=== PATIENT | female | born 1950 | race Caucasian/White ===

== ENCOUNTER 2023-04-05 12:18 | Inpatient (IN) | payer MEDICARE, BC ==
[2023-04-05 14:26] VITALS: BMI 32.8
[2023-04-05] MEDS ORDERED: Communication Order-Pharmacy FS SCH (14:30)
[2023-04-05] MEDS ORDERED: Ondansetron PF 4 MG/2 ML Vial IVP PRN (14:48)
[2023-04-05] MEDS ORDERED: Acetaminophen 325 MG TAB PO PRN (14:48)
[2023-04-05] MEDS ORDERED: Nitroglycerin 0.4 MG TAB (25 Tab Bottle) SL PRN (14:50)
[2023-04-05 15:28] LABS: #Monocytes 0.2 thou/uL (0.11-0.59); #Neutrophils 3.5 thou/uL (1.40-6.50); %Basophils 0.7 % (0.0-1.0); %Eosinophils 0.7 % (0.0-10.0); %Lymphocytes 31.5 % (21.0-51.0); %Neutrophils 62.9 % (42.0-75.0); Hematocrit 40.6 % (36.0-47.0); Hemoglobin 13.4 g/dL (12.0-16.0); Mean Corpuscular Hemoglobin 31.3 pg (27.0-31.0); Mean Corpuscular Volume 94.9 fl (78.0-98.0); Mean Platelet Volume 11.2 fL (7.4-10.4); Platelet Count 258 10x3/uL (130-400); RBC Distribution Width 12.9 % (11.5-14.5); Red Blood Cell (RBC) Count 4.28 mill/uL (4.20-5.40); White Blood Cell (WBC) Count 5.5 10x3/uL (4.8-10.8)
[2023-04-05 15:41] LABS: INR-International Normal Ratio 0.9; Prothrombin Time 12.7 sec (12.0-14.7)
[2023-04-05 16:11] LABS: ALT (SGPT) 13 U/L (8-55); AST (SGOT) 25 U/L (5-34); Alkaline Phosphatase 57 U/L (40-110); Anion Gap 15 mmol/L (10-20); BUN (Urea Nitrogen) 14 mg/dL (9.8-20.1); Bilirubin, Total 0.3 mg/dL (0.2-1.2); Calc. Creatinine Clearance 80 mL/min (70-130); Calcium 8.9 mg/dL (7.8-10.44); Carbon Dioxide 22 mmol/L (23-31); Chloride 105 mmol/L (98-107); Estimated GFR 72; Globulin 2.6 g/dL (2.4-3.5); Glucose 84 mg/dL (83-110); Potassium 4.2 mmol/L (3.5-5.1); Protein, Total 6.6 g/dL (5.8-8.1); Sodium 138 mmol/L (136-145)
[2023-04-05] MEDS ORDERED: Aspirin 81 mg Enteric Coated Tablet PO SCH (16:15)
[2023-04-05] MEDS: Metoprolol Tartrate 25 MG TAB PO SCH (20:30)
[2023-04-05] MEDS ORDERED: Atorvastatin Calcium 40 MG TAB PO SCH (21:00)
[2023-04-06 04:58] LABS: Anion Gap 15 mmol/L (10-20); BUN (Urea Nitrogen) 13 mg/dL (9.8-20.1); Calc. Creatinine Clearance 84 mL/min (70-130); Carbon Dioxide 22 mmol/L (23-31); Chloride 108 mmol/L (98-107); Estimated GFR 76; Glucose 92 mg/dL (83-110); Potassium 3.7 mmol/L (3.5-5.1); Sodium 141 mmol/L (136-145)
[2023-04-06] MEDS: Metoprolol Tartrate 25 MG TAB PO SCH (05:40)
[2023-04-06] MEDS ORDERED: Albumin 5% 500 ML ONE (06:19)
[2023-04-06] MEDS ORDERED: Lidocaine 1% MPF 2 ML VIAL ONE (06:43)
[2023-04-06] MEDS ORDERED: Fentanyl 250 MCG/5 ML VIAL ONE (06:55)
[2023-04-06] MEDS ORDERED: Dexmedetomidine 200 MCG/2 ML VIAL ONE (06:55)
[2023-04-06] MEDS ORDERED: Midazolam HCl 5 mg/ml Vial ONE (06:57)
[2023-04-06] MEDS ORDERED: Heparin 10,000 UNITS/1 ML VIAL 30,000 UNITS in Sodium Chloride 0.9% 1,000 ML FS SCH (07:00)
[2023-04-06] MEDS ORDERED: PROPOFOL 200 MG/20 ML VIAL ONE (07:46)
[2023-04-06] MEDS ORDERED: Dexamethasone 20 MG/5 ML VIAL ONE (07:46)
[2023-04-06] MEDS ORDERED: Glycopyrrolate 0.2 MG/ML 5 ML SYRINGE ONE (07:46)
[2023-04-06] MEDS ORDERED: Ondansetron PF 4 MG/2 ML Vial ONE (07:46)
[2023-04-06] MEDS ORDERED: Lidocaine 1% PF 5 ML VIAL ONE (07:46)
[2023-04-06] MEDS ORDERED: NEOSTIGMINE 3 MG/3 ML SYR 3 MG/3 ML SYRINGE ONE (07:46)
[2023-04-06] MEDS ORDERED: Vecuronium 10 MG VIAL ONE (07:46)
[2023-04-06] MEDS ORDERED: Clindamycin/D5W 900 mg/50 ml Premix Bag ONE (08:21)
[2023-04-06] MEDS ORDERED: Escitalopram Oxalate 20 mg Tablet PO SCH (09:00)
[2023-04-06] MEDS ORDERED: Lisinopril 20 MG TAB PO SCH (09:00)
[2023-04-06] MEDS ORDERED: SUGAMMADEX SODIUM 200 MG/2 ML VIAL ONE (09:44)
[2023-04-06] MEDS ORDERED: Insulin Regular 300 UNITS/3 ML VIAL ONE (10:04)
[2023-04-06] MEDS ORDERED: Nitroglycerin 50 MG/250 ML BOT 250 ML IVPB PRN (11:46)
[2023-04-06] MEDS ORDERED: Hetastarch 6% 500 ML 500 ML IVPB PRN (11:46)
[2023-04-06] MEDS ORDERED: Morphine 2 MG/ML VIAL SLOW IVP PRN (11:46)
[2023-04-06] MEDS ORDERED: hydrALAZINE 20 MG/ML VIAL SLOW IVP PRN (11:46)
[2023-04-06] MEDS ORDERED: DOPamine 400 MG/D5W 250 ML 250 ML IVPB PRN (11:46)
[2023-04-06] MEDS ORDERED: Guaifenesin DM 100-10/5 ML UDCUP PO PRN (11:46)
[2023-04-06] MEDS ORDERED: Ipratropium/Albuterol 3 ML NEB NEB PRN (11:46)
[2023-04-06] MEDS ORDERED: Mag-Al 1200 mg/1200 mg/30 ML UDCUP PO PRN (11:46)
[2023-04-06] MEDS ORDERED: Post-Op Insulin Drip Protocol IVPB ONE (11:46)
[2023-04-06] MEDS ORDERED: Acetaminophen 325 MG TAB PO PRN (11:46)
[2023-04-06] MEDS ORDERED: NOREPINEPHRINE 8 MG/250 ML-D5W 250 ML IVPB PRN (11:46)
[2023-04-06] MEDS ORDERED: fentaNYL 50 mcg/mL 1 mL Vial SLOW IVP PRN ×2 (11:46)
[2023-04-06] MEDS ORDERED: Bisacodyl 5 MG TAB PO PRN (11:46)
[2023-04-06] MEDS ORDERED: niCARdipine 25 MG in Sodium Chloride 0.9% 250 ML 250 ML IVPB PRN (11:46)
[2023-04-06] MEDS ORDERED: Promethazine HCl 25 MG/ML VIAL IM PRN (11:46)
[2023-04-06] MEDS ORDERED: Bisacodyl 10 MG SUPP PR PRN (11:46)
[2023-04-06] MEDS ORDERED: Dextrose 50% Abboject 50 ML SYRINGE SLOW IVP PRN (12:00)
[2023-04-06] MEDS ORDERED: Dextrose 5% in Water 1,000 ML IV PRN (12:00)
[2023-04-06] MEDS ORDERED: Glucagon 1 MG/ML KIT SC PRN (12:00)
[2023-04-06] MEDS ORDERED: HUMULIN R 100 UNITS in Sodium Chloride 0.9% 100 ML IVPB SCH (12:00)
[2023-04-06 12:09] LABS: #Monocytes 0.2 thou/uL (0.11-0.59); #Neutrophils 10.2 thou/uL (1.40-6.50); %Basophils 0.3 % (0.0-1.0); %Eosinophils 0.3 % (0.0-10.0); %Lymphocytes 11.1 % (21.0-51.0); %Monocytes 1.8 % (0.0-10.0); %Neutrophils 86.1 % (42.0-75.0); Hematocrit 32.1 % (36.0-47.0); Hemoglobin 10.8 g/dL (12.0-16.0); Mean Corpuscular HGB CONC 33.6 g/dL (32.0-36.0); Mean Corpuscular Hemoglobin 31.9 pg (27.0-31.0); Mean Corpuscular Volume 94.7 fl (78.0-98.0); Mean Platelet Volume 10.4 fL (7.4-10.4); Platelet Count 197 10x3/uL (130-400); RBC Distribution Width 12.8 % (11.5-14.5); Red Blood Cell (RBC) Count 3.39 mill/uL (4.20-5.40); White Blood Cell (WBC) Count 11.9 10x3/uL (4.8-10.8)
[2023-04-06] MEDS: Lactated Ringer's 1,000 ML IV SCH (12:09)
[2023-04-06] MEDS: Ketorolac Tromethamine 30 MG/ML VIAL IVP SCH ×3 (12:16→23:50)
[2023-04-06 12:33] LABS: INR-International Normal Ratio 1.3; PTT 28.8 sec (22.9-36.1); Prothrombin Time 16.4 sec (12.0-14.7)
[2023-04-06 12:34] LABS: Anion Gap 10 mmol/L (10-20); BUN (Urea Nitrogen) 10 mg/dL (9.8-20.1); Calc. Creatinine Clearance 95 mL/min (70-130); Carbon Dioxide 23 mmol/L (23-31); Chloride 112 mmol/L (98-107); Estimated GFR 89; Glucose 99 mg/dL (83-110); Potassium 3.9 mmol/L (3.5-5.1); Sodium 141 mmol/L (136-145)
[2023-04-06] MEDS ORDERED: Clindamycin/D5W 900 MG in Premix 1 BAG IVPB SCH (13:00)
[2023-04-06] MEDS: Potassium Chloride 20 MEQ/100 ML PREMIX BAG IVPB PRN (13:06)
[2023-04-06] MEDS: Insulin Regular 300 UNITS/3 ML VIAL SC PRN ×2 (16:08→20:00)
[2023-04-06] MEDS: Clindamycin/D5W 600 MG in Premix 1 BAG IVPB SCH ×2 (17:13→23:50)
[2023-04-06 18:31] LABS: Hematocrit 30.3 % (36.0-47.0)
[2023-04-06 18:46] LABS: Potassium 4.3 mmol/L (3.5-5.1)
[2023-04-06] MEDS: Famotidine/PF 20 mg/2ml Vial SLOW IVP SCH (19:57)
[2023-04-06] MEDS: traMADol HCl 50 MG TAB PO PRN (19:58)
[2023-04-06] MEDS: Atorvastatin Calcium 20 MG TAB PO SCH (19:58)
[2023-04-07] MEDS: Lactated Ringer's 1,000 ML IV SCH ×2 (00:02→16:24)
[2023-04-07] MEDS: traMADol HCl 50 MG TAB PO PRN (03:53)
[2023-04-07] MEDS: Clindamycin/D5W 600 MG in Premix 1 BAG IVPB SCH ×2 (04:01→11:51)
[2023-04-07 04:28] LABS: #Monocytes 0.6 thou/uL (0.11-0.59); #Neutrophils 10.5 thou/uL (1.40-6.50); %Basophils 0.1 % (0.0-1.0); %Lymphocytes 8.8 % (21.0-51.0); %Monocytes 4.8 % (0.0-10.0); %Neutrophils 85.9 % (42.0-75.0); Hematocrit 27.8 % (36.0-47.0); Hemoglobin 9.3 g/dL (12.0-16.0); Mean Corpuscular HGB CONC 33.5 g/dL (32.0-36.0); Mean Corpuscular Hemoglobin 32.1 pg (27.0-31.0); Mean Corpuscular Volume 95.9 fl (78.0-98.0); Mean Platelet Volume 11.4 fL (7.4-10.4); Platelet Count 209 10x3/uL (130-400); RBC Distribution Width 13.2 % (11.5-14.5); White Blood Cell (WBC) Count 12.2 10x3/uL (4.8-10.8)
[2023-04-07 04:54] LABS: Anion Gap 15 mmol/L (10-20); BUN (Urea Nitrogen) 15 mg/dL (9.8-20.1); Calc. Creatinine Clearance 87 mL/min (70-130); Calcium 8.5 mg/dL (7.8-10.44); Carbon Dioxide 20 mmol/L (23-31); Chloride 109 mmol/L (98-107); Estimated GFR 80; Glucose 107 mg/dL (83-110); Potassium 4.2 mmol/L (3.5-5.1); Sodium 140 mmol/L (136-145)
[2023-04-07] MEDS: Ketorolac Tromethamine 30 MG/ML VIAL IVP SCH ×4 (06:11→23:52)
[2023-04-07] MEDS: Ondansetron PF 4 MG/2 ML Vial IVP PRN ×2 (06:25→12:59)
[2023-04-07] MEDS: Famotidine/PF 20 mg/2ml Vial SLOW IVP SCH ×2 (09:00→21:01)
[2023-04-07] MEDS: Escitalopram Oxalate 20 mg Tablet PO SCH (09:00)
[2023-04-07] MEDS: Clopidogrel Bisulfate 75 MG TAB PO SCH (09:00)
[2023-04-07] MEDS: Aspirin Chewable 81 MG TAB PO SCH (09:00)
[2023-04-07] MEDS: Polyethylene Glycol 3350 17 GM Packet PO SCH (09:00)
[2023-04-07] MEDS ORDERED: Insulin Glargine 30 UNITS/0.3 ML VIAL SC PRN (11:48)
[2023-04-07] MEDS: Insulin Regular 300 UNITS/3 ML VIAL SC PRN ×3 (12:23→20:07)
[2023-04-07] MEDS: Atorvastatin Calcium 20 MG TAB PO SCH (21:02)
[2023-04-07] MEDS: Melatonin 3 MG TAB PO PRN (21:03)
[2023-04-08] MEDS: traMADol HCl 50 MG TAB PO PRN (02:19)
[2023-04-08 04:53] LABS: #Monocytes 0.4 thou/uL (0.11-0.59); #Neutrophils 4.4 thou/uL (1.40-6.50); %Basophils 0.3 % (0.0-1.0); %Eosinophils 0.2 % (0.0-10.0); %Lymphocytes 23.6 % (21.0-51.0); %Monocytes 6.3 % (0.0-10.0); %Neutrophils 69.3 % (42.0-75.0); Hematocrit 22.4 % (36.0-47.0); Hemoglobin 7.4 g/dL (12.0-16.0); Mean Corpuscular Hemoglobin 31.5 pg (27.0-31.0); Mean Corpuscular Volume 95.3 fl (78.0-98.0); Mean Platelet Volume 11.1 fL (7.4-10.4); Platelet Count 165 10x3/uL (130-400); RBC Distribution Width 13.5 % (11.5-14.5); Red Blood Cell (RBC) Count 2.35 mill/uL (4.20-5.40); White Blood Cell (WBC) Count 6.3 10x3/uL (4.8-10.8)
[2023-04-08 05:16] LABS: Anion Gap 11 mmol/L (10-20); BUN (Urea Nitrogen) 19 mg/dL (9.8-20.1); Calc. Creatinine Clearance 84 mL/min (70-130); Carbon Dioxide 24 mmol/L (23-31); Chloride 105 mmol/L (98-107); Estimated GFR 72; Glucose 111 mg/dL (83-110); Potassium 3.9 mmol/L (3.5-5.1); Sodium 136 mmol/L (136-145)
[2023-04-08] MEDS: Ketorolac Tromethamine 30 MG/ML VIAL IVP SCH ×2 (06:09→12:42)
[2023-04-08] MEDS: Lactated Ringer's 1,000 ML IV SCH (06:11)
[2023-04-08 06:53] LABS: Hematocrit 24.7 % (36.0-47.0); Hemoglobin 8.1 g/dL (12.0-16.0); Mean Corpuscular HGB CONC 32.8 g/dL (32.0-36.0); Mean Corpuscular Hemoglobin 31.6 pg (27.0-31.0); Mean Corpuscular Volume 96.5 fl (78.0-98.0); Platelet Count 196 10x3/uL (130-400); RBC Distribution Width 13.5 % (11.5-14.5); Red Blood Cell (RBC) Count 2.56 mill/uL (4.20-5.40); White Blood Cell (WBC) Count 7.8 10x3/uL (4.8-10.8)
[2023-04-08] MEDS: Potassium Chloride 20 MEQ/100 ML PREMIX BAG IVPB PRN (07:01)
[2023-04-08] MEDS: Clopidogrel Bisulfate 75 MG TAB PO SCH (09:25)
[2023-04-08] MEDS: Famotidine/PF 20 mg/2ml Vial SLOW IVP SCH ×2 (09:25→20:34)
[2023-04-08] MEDS: Escitalopram Oxalate 20 mg Tablet PO SCH (09:25)
[2023-04-08] MEDS: Aspirin Chewable 81 MG TAB PO SCH (09:25)
[2023-04-08] MEDS: Metoprolol Tartrate 25 MG TAB PO SCH ×3 (09:33→21:09)
[2023-04-08] MEDS: Polyethylene Glycol 3350 17 GM Packet PO SCH (09:34)
[2023-04-08] MEDS ORDERED: Furosemide 20 MG/2 ML VIAL SLOW IVP SCH (10:00)
[2023-04-08] MEDS: Ondansetron PF 4 MG/2 ML Vial IVP PRN (20:35)
[2023-04-08] MEDS: Atorvastatin Calcium 20 MG TAB PO SCH (21:09)
[2023-04-08] MEDS: Melatonin 3 MG TAB PO PRN (21:09)
[2023-04-09] MEDS: Metoprolol Tartrate 25 MG TAB PO SCH ×3 (04:21→21:01)
[2023-04-09] MEDS: Atorvastatin Calcium 20 MG TAB PO SCH ×2 (04:22→21:01)
[2023-04-09 05:05] LABS: #Monocytes 0.3 thou/uL (0.11-0.59); #Neutrophils 4.6 thou/uL (1.40-6.50); %Basophils 0.6 % (0.0-1.0); %Eosinophils 0.3 % (0.0-10.0); %Lymphocytes 19.7 % (21.0-51.0); %Monocytes 5.4 % (0.0-10.0); %Neutrophils 73.7 % (42.0-75.0); Hematocrit 24.4 % (36.0-47.0); Hemoglobin 8.2 g/dL (12.0-16.0); Mean Corpuscular HGB CONC 33.6 g/dL (32.0-36.0); Mean Corpuscular Hemoglobin 31.2 pg (27.0-31.0); Mean Platelet Volume 11.2 fL (7.4-10.4); Platelet Count 187 10x3/uL (130-400); RBC Distribution Width 13.2 % (11.5-14.5); Red Blood Cell (RBC) Count 2.63 mill/uL (4.20-5.40); White Blood Cell (WBC) Count 6.3 10x3/uL (4.8-10.8)
[2023-04-09 05:26] LABS: Anion Gap 15 mmol/L (10-20); BUN (Urea Nitrogen) 17 mg/dL (9.8-20.1); Calc. Creatinine Clearance 103 mL/min (70-130); Calcium 8.4 mg/dL (7.8-10.44); Carbon Dioxide 21 mmol/L (23-31); Chloride 101 mmol/L (98-107); Estimated GFR 85; Glucose 106 mg/dL (83-110); Potassium 3.8 mmol/L (3.5-5.1); Sodium 133 mmol/L (136-145)
[2023-04-09 05:28] LABS: Mean Corpuscular Volume 92.8 fl (78.0-98.0)
[2023-04-09] MEDS: Polyethylene Glycol 3350 17 GM Packet PO SCH (09:08)
[2023-04-09] MEDS: Famotidine/PF 20 mg/2ml Vial SLOW IVP SCH (09:08)
[2023-04-09] MEDS: Clopidogrel Bisulfate 75 MG TAB PO SCH (09:08)
[2023-04-09] MEDS: Aspirin Chewable 81 MG TAB PO SCH (09:08)
[2023-04-09] MEDS: Escitalopram Oxalate 20 mg Tablet PO SCH (09:08)
[2023-04-09] MEDS: traMADol HCl 50 MG TAB PO PRN (14:08)
[2023-04-09] MEDS ORDERED: Aspirin 81 mg Enteric Coated Tablet PO SCH (14:30)
[2023-04-09] MEDS: Melatonin 3 MG TAB PO PRN (21:01)
[2023-04-09] MEDS: Famotidine 20 MG TAB PO SCH (21:01)
[2023-04-10] MEDS: Metoprolol Tartrate 25 MG TAB PO SCH ×2 (09:43→20:28)
[2023-04-10] MEDS: Potassium Chloride 20 MEQ TAB PO SCH (09:44)
[2023-04-10] MEDS: Furosemide 40 MG TAB PO SCH (09:44)
[2023-04-10] MEDS: Famotidine 20 MG TAB PO SCH ×2 (09:44→20:28)
[2023-04-10] MEDS: Aspirin 81 mg Enteric Coated Tablet PO SCH (09:44)
[2023-04-10] MEDS: Lisinopril 20 MG TAB PO SCH (09:44)
[2023-04-10] MEDS: Clopidogrel Bisulfate 75 MG TAB PO SCH (09:44)
[2023-04-10] MEDS: Escitalopram Oxalate 20 mg Tablet PO SCH (09:44)
[2023-04-10] MEDS: Atorvastatin Calcium 20 MG TAB PO SCH (20:27)
[2023-04-10] MEDS: Melatonin 3 MG TAB PO PRN (20:28)
[2023-04-11 07:49] VITALS: BP 144/74; TEMP 97.2
[2023-04-11] MEDS: Aspirin 81 mg Enteric Coated Tablet PO SCH (08:15)
[2023-04-11] MEDS: Famotidine 20 MG TAB PO SCH (08:15)
[2023-04-11] MEDS: Lisinopril 20 MG TAB PO SCH (08:15)
[2023-04-11] MEDS: Metoprolol Tartrate 25 MG TAB PO SCH (08:15)
[2023-04-11] MEDS: Potassium Chloride 20 MEQ TAB PO SCH (08:15)
[2023-04-11] MEDS: Clopidogrel Bisulfate 75 MG TAB PO SCH (08:15)
[2023-04-11] MEDS: Furosemide 40 MG TAB PO SCH (08:16)
[2023-04-11] MEDS: Escitalopram Oxalate 20 mg Tablet PO SCH (08:16)
== END 2023-04-11 11:15 | disposition home or self-care (01) | DRG 236 ==
LOC: 2NO 13:33 → CCU 04-06 06:53 → 2NO 04-08 17:34
PROVIDERS: ADMIT Family Medicine; ATTEND Internal Medicine
PROC: 30233J1 Transfusion of Nonautologous Serum Albumin into Peripheral Vein, Percutaneous Approach (ICD-10-PCS; 2023-04-06)
PROC: 02100Z9 Bypass Coronary Artery, One Artery from Left Internal Mammary, Open Approach (ICD-10-PCS; principal; 2023-04-07)
PROC: 021109W Bypass Coronary Artery, Two Arteries from Aorta with Autologous Venous Tissue, Open Approach (ICD-10-PCS; 2023-04-07)
PROC: 06BQ3ZZ Excision of Left Saphenous Vein, Percutaneous Approach (ICD-10-PCS; 2023-04-07)
PROC: 5A1221Z Performance of Cardiac Output, Continuous (ICD-10-PCS; 2023-04-07)
DX: I25.10 Atherosclerotic heart disease of native coronary artery without angina pectoris (principal); I10 Essential (primary) hypertension; F39 Unspecified mood [affective] disorder; G47.00 Insomnia, unspecified; Z90.710 Acquired absence of both cervix and uterus; Z98.890 Other specified postprocedural states; Z88.2 Allergy status to sulfonamides; Z85.3 Personal history of malignant neoplasm of breast
CPT/HCPCS: 36415; 36416; 36430; 71045; 80048; 80053; 85025; 85610; 85730; 86850; 86900; 86901; 93005; 93010; 93798; 97139; A4311; C1751; J0360; J1100; J1642; J1815; J1885; J1940; J2250; J2405; J2704; J3010; J3480; J3490; J7120; P9045; S0028

== ENCOUNTER 2023-11-02 12:11 | Outpatient (CLI) | payer MEDICARE, BC | END 2023-11-02 12:12 | disposition home or self-care (01) | LOC: BICULT 12:11 | PROVIDERS: ATTEND Otolaryngology | DX: E04.2 Nontoxic multinodular goiter (principal) | CPT/HCPCS: 76536 ==